=== PATIENT | female | born 2000 | race Two or more races ===

== ENCOUNTER 2020-12-14 20:44 | Outpatient (CLI) | payer SELFPAY ==
[~2020-12-14] VITALS: Ht 160 cm; Wt 70.0 kg
[2020-12-14 21:32] LABS: MICROSCOPIC INDICATED
[2020-12-14] MEDS ORDERED: NITR100C56 PO (22:10)
== END 2020-12-14 22:32 | disposition home or self-care (01) ==
LOC: LDOP 20:44
PROVIDERS: ATTEND Obstetrics & Gynecology
DX: O26.892 Other specified pregnancy related conditions, second trimester (principal); Z3A.20 20 weeks gestation of pregnancy
CPT/HCPCS: 81001; 87086; 99211; G0463